=== PATIENT | male | born 1995 | race Caucasian/White ===

== ENCOUNTER 2020-04-11 17:24 | Emergency (ER) | payer SELFPAY ==
[2020-04-11 17:38] VITALS: BP 142/85
[2020-04-11] MEDS ORDERED: CLINDAMYCIN 600 MG/D5W RTU 600 MG/50 ML RTUPB IV ONE (19:34)
[2020-04-11] MEDS ORDERED: DIPH/PERTUSS(ACELL)/TETANUS VAC/PF 0.5 ML SYR (>=10YO) IM ONE (19:34)
[2020-04-11] MEDS ORDERED: RINGERS SOLUTION,LACTATED 1,000 ML IV ONE (19:37)
--- NOTE | 2020-04-11 19:37 | ER Document Report ---
ED Medical Screen (RME) - General Chief Complaint: Hand Pain Stated Complaint: POSSIBLE HAND INFECTION Time Seen by Provider: 04/11/20 19:27 Mode of Arrival: Ambulatory Information source: Patient Notes: HPI; 25-year-old male presents emergency room with possible abscess to his left arm that he noticed 2 days ago. He denies any trauma or injury. Also states that approximately 3 months ago he got stuck in his left middle finger with a needle while cleaning up a company truck. He states he all developed also developed a abscess on his left buttock today. Denies any previous history of abscesses. No fevers. No medication for symptoms. Unknown last tetanus shot. PE: Alert and oriented x3. Left thumb with erythema, swelling, tenderness to palpation. Tip of left middle finger poorly healing from a possible previous abscess. It is not warm or tender to palpation. With no active discharge or draining noted. Unable to do full assessment in triage. I have greeted and performed a rapid initial assessment of this patient. A comprehensive ED assessment and evaluation of the patient, analysis of test results and completion of the medical decision making process will be conducted by additional ED providers. I have specifically instructed the patient or family members with the patient to immediately return to any nursing staff should anything change in the patient's condition or with their chief complaint. TRAVEL OUTSIDE OF THE [place] IN LAST 30 DAYS: No Physical Exam - Vital signs Vitals: Temp Pulse Resp BP Pulse Ox 98.2 F 106 H 16 142/85 H 100 04/11/20 17:37 04/11/20 17:37 04/11/20 17:37 04/11/20 17:37 04/11/20 17:37 Course - Vital Signs Vital signs: Temp Pulse Resp BP Pulse Ox 98.2 F 106 H 16 142/85 H 100 04/11/20 17:37 04/11/20 17:37 04/11/20 17:37 04/11/20 17:37 04/11/20 17:37
[2020-04-11 20:12] LABS: ABSOLUTE BASOPHILS # (AUTO) 0.1 10^3/uL (0.0-0.2); ABSOLUTE EOSINOPHILS # (AUTO) 0.2 10^3/uL (0.0-0.6); ABSOLUTE LYMPHOCYTES (AUTO) 2.1 10^3/uL (0.5-4.7); ABSOLUTE MONOCYTES (AUTO) 0.8 10^3/uL (0.1-1.4); ABSOLUTE NEUT (AUTO) 11.7 10^3/uL (1.7-8.2); BASOPHILS % (AUTO) 0.5 % (0-2); EOSINOPHILS % (AUTO) 1.1 % (0-6); HEMATOCRIT 49.5 % (37.9-51.0); HEMOGLOBIN 16.8 g/dL (13.5-17.0); LYMPHOCYTES % (AUTO) 14.1 % (13-45); MEAN CORPUSCULAR HEMOGLOBIN 28.6 pg (27.0-33.4); MEAN CORPUSCULAR VOLUME 84 fl (80-97); MONOCYTES % (AUTO) 5.3 % (3-13); PLATELET COUNT 263 10^3/uL (150-450); RED BLOOD COUNT 5.89 10^6/uL (4.35-5.55); RED CELL DISTRIBUTION WIDTH 13.3 % (11.5-14.0); TOTAL CELLS COUNTED % (AUTO) 100 %; WHITE BLOOD COUNT 14.8 10^3/uL (4.0-10.5)
[2020-04-11 20:28] LABS: ALBUMIN 4.4 g/dL (3.5-5.0); ALKALINE PHOSPHATASE 131 U/L (38-126); ANION GAP 10 (5-19); ASPARTATE AMINO TRANSFERASE 21 U/L (17-59); BILIRUBIN,TOTAL 0.4 mg/dL (0.2-1.3); BLOOD UREA NITROGEN 8 mg/dL (7-20); CALCIUM 9.3 mg/dL (8.4-10.2); CARBON DIOXIDE 28 mmol/L (22-30); CHLORIDE 101 mmol/L (98-107); GLUCOSE 116 mg/dL (75-110); POTASSIUM 4.1 mmol/L (3.6-5.0); TOTAL PROTEIN 7.3 g/dL (6.3-8.2)
--- NOTE | 2020-04-11 20:28 | RADIOLOGY REPORT (SQ) ---
EXAM DESCRIPTION: XR HAND 3 OR MORE VIEWS COMPLETED DATE/TME: 04/11/2020 19:35 CLINICAL HISTORY: 25 years ,Male pain/swelling COMPARISON: None. TECHNIQUE: LEFT hand, Three view FINDINGS: There is been amputation of the tip of the third digit which involves both the terminal tuft and the soft tissues. No radiopaque foreign object noted. IMPRESSION: Amputation of the tip at the third digit involving the terminal tuft and soft tissues
== END 2020-04-11 22:20 | disposition left against medical advice (07) ==
LOC: ER 17:24
DX: L53.9 Erythematous condition, unspecified (principal); M79.89 Other specified soft tissue disorders; L02.31 Cutaneous abscess of buttock; M79.643 Pain in unspecified hand; Z53.20 Procedure and treatment not carried out because of patient's decision for unspecified reasons
CPT/HCPCS: 36415; 80053; 83605; 85025; 87040; 99281

== ENCOUNTER 2020-04-16 00:51 | Emergency (ER) | payer SELFPAY ==
[2020-04-16] MEDS ORDERED: VANCOMYCIN HCL INJ 1000 MG VIAL IV ONE (01:43)
[2020-04-16] MEDS ORDERED: CEFTRIAXONE 1 GM/D5W RTU 1 GM/50 ML RTUPB IV ONE (01:43)
--- NOTE | 2020-04-16 01:45 | ER Document Report ---
ED Medical Screen (RME) - General Chief Complaint: Skin Sore(s) Stated Complaint: OPEN SORES ON BUTTOCK, LEFT THUMB, MIDDLE FINGER Time Seen by Provider: 04/16/20 01:36 Notes: 25-year-old male with chief complaint of infection to the left thumb and middle fingers. He states he had a needle injury to the left middle finger, he is actually evaluated for this about a week ago briefly but left before being seen completely. He states over the past several days he has had significant swelling, pain, and discoloration to the left thumb, he tried to cut the edge of the thumb open himself over the past day and now he has pus draining out of the thumb pad. He denies fevers. Secondarily he also has a boil on his left buttock. He denies history of IV drug abuse or MRSA. He denies any known medical history. TRAVEL OUTSIDE OF THE [place] IN LAST 30 DAYS: No - Related Data Allergies/Adverse Reactions: No Known Allergies Allergy (Verified 04/16/20 01:36) Past Medical History - Social History Frequency of alcohol use: None Drug Abuse: Marijuana Physical Exam - Vital signs Vitals: Temp Pulse Resp BP Pulse Ox 98.1 F 119 H 20 158/83 H 99 04/16/20 00:59 04/16/20 00:59 04/16/20 00:59 04/16/20 00:59 04/16/20 00:59 - Extremities General upper extremity: Other - Erythema, ecchymosis, significant swelling and discoloration to the left thumb and slightly to the left middle finger. There is an open wound over the thumb pad with draining purulent material Course - Re-evaluation Re-evalutation: I have greeted and performed a rapid initial assessment of this patient. A comprehensive ED assessment and evaluation of the patient, analysis of test results and completion of the medical decision making process will be conducted by additional ED providers. - Vital Signs Vital signs: Temp Pulse Resp BP Pulse Ox 98.1 F 119 H 20 158/83 H 99 04/16/20 00:59 04/16/20 00:59 04/16/20 00:59 04/16/20 00:59 04/16/20 00:59
[2020-04-16 02:18] LABS: ABSOLUTE BASOPHILS # (AUTO) 0.1 10^3/uL (0.0-0.2); ABSOLUTE EOSINOPHILS # (AUTO) 0.3 10^3/uL (0.0-0.6); ABSOLUTE MONOCYTES (AUTO) 0.8 10^3/uL (0.1-1.4); ABSOLUTE NEUT (AUTO) 7.2 10^3/uL (1.7-8.2); BASOPHILS % (AUTO) 0.9 % (0-2); EOSINOPHILS % (AUTO) 2.2 % (0-6); HEMATOCRIT 47.2 % (37.9-51.0); HEMOGLOBIN 15.9 g/dL (13.5-17.0); LYMPHOCYTES % (AUTO) 26.2 % (13-45); MEAN CORPUSCULAR HEMOGLOBIN 28.3 pg (27.0-33.4); MEAN CORPUSCULAR HGB CONC 33.7 g/dL (32.0-36.0); MEAN CORPUSCULAR VOLUME 84 fl (80-97); MONOCYTES % (AUTO) 7.1 % (3-13); PLATELET COUNT 346 10^3/uL (150-450); RED BLOOD COUNT 5.62 10^6/uL (4.35-5.55); RED CELL DISTRIBUTION WIDTH 13.3 % (11.5-14.0); SEGMENTED NEUTROPHILS % (AUTO) 63.6 % (42-78); TOTAL CELLS COUNTED % (AUTO) 100 %; WHITE BLOOD COUNT 11.3 10^3/uL (4.0-10.5)
[2020-04-16] MEDS ORDERED: DIPH/PERTUSS(ACELL)/TETANUS VAC/PF 0.5 ML SYR (>=10YO) IM ONE (02:26)
--- NOTE | 2020-04-16 02:26 | ER Document Report ---
ED General - General Chief Complaint: Skin Sore(s) Stated Complaint: OPEN SORES ON BUTTOCK, LEFT THUMB, MIDDLE FINGER Time Seen by Provider: 04/16/20 01:36 TRAVEL OUTSIDE OF THE [place] IN LAST 30 DAYS: No - HPI Notes: Patient is a 25-year-old male who presents to the emergency department for evaluation of pain and swelling in his left thumb. He is a slightly difficult historian. He states the first he developed swelling in his left middle finger. He states that that improved, but now he is developed in his left thumb. It appears this is only been going on over the last several days. He states he cut it open earlier today because the swelling caused him significant pain. Now that he is "released the pressure" his pain is only 1 out of 5. He states he is unsure when his last tetanus shot was. He denies any fever chills. No nausea or vomiting. He is eating and drinking normally. He is right-hand dominant. On further questioning, the patient admits to using cocaine just prior to arriv al. - Related Data Allergies/Adverse Reactions: No Known Allergies Allergy (Verified 04/16/20 01:36) Home Medications: None Past Medical History - General Information source: Patient - Social History Smoking Status: Current Every Day Smoker Frequency of alcohol use: None Drug Abuse: Cocaine, Marijuana Family History: Reviewed & Not Pertinent Surgical Hx: Negative Review of Systems - Review of Systems Constitutional: No symptoms reported EENT: No symptoms reported Cardiovascular: No symptoms reported Respiratory: No symptoms reported Gastrointestinal: No symptoms reported Genitourinary: No symptoms reported Musculoskeletal: See HPI Skin: See HPI Neurological/Psychological: No symptoms reported Physical Exam - Vital signs Vitals: Temp Pulse Resp BP Pulse Ox 98.1 F 119 H 20 158/83 H 99 04/16/20 00:59 04/16/20 00:59 04/16/20 00:59 04/16/20 00:59 04/16/20 00:59 - Notes Notes: Is a 25-year-old gentleman who appears stated age, no acute distress. Head is normocephalic and atraumatic, pupils are equal and round, reactive to light. Oral mucosa is moist. Uvula is midline. Neck is supple without meningismus. Heart is tachycardic with normal S1, S2. Lungs are clear to auscultation bilaterally. Abdomen is soft, nontender, normoactive bowel sounds. Examination of the left upper extremity yields chronic appearing deformity to the distal phalanx of the middle finger, palmar aspect. The patient has a moderate amount of edema with open area on the palmar aspect of the left thumb, asymmetry secondary to the edema. There is erythema. There is a small amount of purulence draining from the open wound. Erythema tracks to the base of the thumb. I do not appreciate any lymphangitic streaking. Patient is awake and alert, cooperative with examiner. Course - Re-evaluation Re-evalutation: 04/16/20 02:29 Patient presents to the emergency department for evaluation. He was initially seen through triage. He had blood work and imaging is ordered. He had antibiotics including ceftriaxone and vancomycin ordered. The patient admits to regular cocaine use, this is likely the etiology of his tachycardia. Ordering full septic work-up. He is given IV fluids. He has not yet been on antibiotics. His tetanus is updated. Awaiting for blood work and imaging results to determine ultimate disposition. Patient is currently stable, we will continue to monitor. 04/16/20 03:22 Laboratory investigation revealed only very mild areas no significant left shift. He is tachycardic but I suspect this is secondary to the cocaine. Tetanus updated. He was given ceftriaxone and vancomycin here. He is given IV fluids. His lactic acid is normal. I do believe that this patient has a felon, and I do not see any significant signs of systemic infection. He has already cut into the area, and I do believe it would be more appropriately cared for by an orthopedic surgeon, particularly given the asymmetric deformity as well. I will send him home on antibiotics. The importance of close follow-up with orthopedist was stressed, and I explained to him that not following up could result in significantly worsened infection or loss of the finger. He voiced understanding. I also explained to him that he should abstain from use of cocaine and he voiced understanding as well. He will be referred on to follow- up with Dr. Ordonez, on-call orthopedic surgeon. He is to return to the emergency department with worsening or new concerning symptoms of any sort. - Vital Signs Vital signs: Temp Pulse Resp BP Pulse Ox 98.1 F 119 H 20 158/83 H 99 04/16/20 00:59 04/16/20 00:59 04/16/20 00:59 04/16/20 00:59 04/16/20 00:59 - Laboratory Result Diagrams: 04/16/20 02:00 04/16/20 02:00 Laboratory results interpreted by me: 04/16/20 04/16/20 02:00 02:00 WBC 11.3 H RBC 5.62 H Glucose 136 H - Diagnostic Test Radiology reviewed: Image reviewed, Reports reviewed Radiology results interpreted by me: 04/16/20 03:24 Finger X-Ray 04/16/20 01:42 IMPRESSION: No significant change compared to the prior exam. Amputation through the tip of the third distal phalanx. copyright 2010 [employer]- All Rights Reserved Discharge - Discharge Clinical Impression: Felon of finger of left hand, Cocaine abuse Condition: Stable Disposition: HOME, SELF-CARE Instructions: Felon (Fingertip Abscess) (OM), Cocaine Abuse (OM) Additional Instructions: Please keep thumb clean with soap and water. Take antibiotic as prescribed. It is very important that you follow-up with the orthopedic surgeon on-call for further treatment, including likely incision and drainage. If you develop fevers, vomiting, increased redness, or any other new or concerning symptoms, please return immediately to the emergency department for evaluation. Referrals: QUINTEN ORDONEZ MD [ACTIVE STAFF] - Follow up as needed
[2020-04-16 02:31] LABS: ALBUMIN 4.1 g/dL (3.5-5.0); ALKALINE PHOSPHATASE 100 U/L (38-126); ANION GAP 10 (5-19); ASPARTATE AMINO TRANSFERASE 29 U/L (17-59); BILIRUBIN,DIRECT 0.2 mg/dL (0.0-0.4); BILIRUBIN,TOTAL 0.4 mg/dL (0.2-1.3); BLOOD UREA NITROGEN 11 mg/dL (7-20); CALCIUM 9.2 mg/dL (8.4-10.2); CARBON DIOXIDE 28 mmol/L (22-30); CHLORIDE 101 mmol/L (98-107); GLUCOSE 136 mg/dL (75-110); POTASSIUM 4.2 mmol/L (3.6-5.0); TOTAL PROTEIN 6.8 g/dL (6.3-8.2)
[2020-04-16] MEDS: NORMAL SALINE 1000 ML 1,000 ML IV PRN ×2 (02:46→04:35)
--- NOTE | 2020-04-16 03:01 | RADIOLOGY REPORT (SQ) ---
EXAM DESCRIPTION: XR FINGERS COMPLETED DATE/TME: 04/16/2020 01:42 CLINICAL HISTORY: 25 years, Male, x-rays of middle and thumb; injury, infection COMPARISON: 04/11/2020 NUMBER OF VIEWS: Three TECHNIQUE: Three views of the left fingers. LIMITATIONS: None. FINDINGS: Again noted is a amputation through the tip of the third distal phalanx. There is no acute fracture, dislocation, erosion, or periosteal reaction. Joint spaces are preserved. No radiopaque foreign body. IMPRESSION: No significant change compared to the prior exam. Amputation through the tip of the third distal phalanx. copyright 2010 [employer] All Rights Reserved
[2020-04-16 05:35] VITALS: BP 137/83
== END 2020-04-16 05:37 | disposition home or self-care (01) ==
LOC: ER 00:51
DX: L03.012 Cellulitis of left finger (principal); F14.10 Cocaine abuse, uncomplicated; L98.9 Disorder of the skin and subcutaneous tissue, unspecified; M79.89 Other specified soft tissue disorders; M79.645 Pain in left finger(s); F12.10 Cannabis abuse, uncomplicated; F17.200 Nicotine dependence, unspecified, uncomplicated
CPT/HCPCS: 99284; 96361; 90471; 96365; 96368; 36415; 87040; 87070; 87205; 83605; 85025; 87077; 80053; 87186; 73140; 90715; J7030; J3370; J0696

== ENCOUNTER 2020-04-25 22:30 | Emergency (ER) | payer SELFPAY ==
--- NOTE | 2020-04-25 23:40 | ER Document Report ---
ED Medical Screen (RME) - General Chief Complaint: Psych Problem Stated Complaint: PSYCH/VISUAL/AUDITORY HALLUCINATIONS Time Seen by Provider: 04/25/20 23:32 Mode of Arrival: Ambulatory Information source: Patient, Relative - bROTHER Notes: Patient is a 25-year-old male presenting to the emergency department stating that he is seeing things and hearing voices. He states this started about 3 days ago, he denies any history of any mental health issues, has never had any mental health diagnoses and does not take any medications. He does report that he uses meth daily. He denies any suicidal or homicidal ideations. He is a poor historian. His brother is with him in triage, his brother reports he broke up with his girlfriend about a year ago and that has been bothering him over the last few days. I have greeted and performed a rapid initial assessment of this patient. A comprehensive ED assessment and evaluation of the patient, analysis of test results and completion of the medical decision making process will be conducted by additional ED providers. I have specifically instructed the patient or family members with the patient to immediately return to any nursing staff pilar uld anything change in the patient's condition or with their chief complaint. TRAVEL OUTSIDE OF THE [place] IN LAST 30 DAYS: No - Related Data Allergies/Adverse Reactions: No Known Allergies Allergy (Verified 04/16/20 01:36) Past Medical History - Social History Frequency of alcohol use: Occasional Drug Abuse: Methamphetamine Physical Exam - Vital signs Vitals: Temp Pulse Resp BP Pulse Ox 98 F 114 H 20 148/76 H 96 04/25/20 22:43 04/25/20 22:43 04/25/20 22:43 04/25/20 22:43 04/25/20 22:43 Course - Vital Signs Vital signs: Temp Pulse Resp BP Pulse Ox 98 F 114 H 20 148/76 H 96 04/25/20 23:26 04/25/20 22:43 04/25/20 22:43 04/25/20 22:43 04/25/20 22:43
[2020-04-26 00:07] LABS: ABSOLUTE BASOPHILS # (AUTO) 0.1 10^3/uL (0.0-0.2); ABSOLUTE EOSINOPHILS # (AUTO) 0.2 10^3/uL (0.0-0.6); ABSOLUTE MONOCYTES (AUTO) 0.7 10^3/uL (0.1-1.4); ABSOLUTE NEUT (AUTO) 6.2 10^3/uL (1.7-8.2); TOTAL CELLS COUNTED % (AUTO) 100 %
[2020-04-26 00:12] LABS: ALBUMIN 4.5 g/dL (3.5-5.0); ALKALINE PHOSPHATASE 91 U/L (38-126); ANION GAP 11 (5-19); ASPARTATE AMINO TRANSFERASE 36 U/L (17-59); BILIRUBIN,DIRECT 0.3 mg/dL (0.0-0.4); BILIRUBIN,TOTAL 0.5 mg/dL (0.2-1.3); BLOOD UREA NITROGEN 10 mg/dL (7-20); CALCIUM 9.3 mg/dL (8.4-10.2); CARBON DIOXIDE 27 mmol/L (22-30); CHLORIDE 104 mmol/L (98-107); GLUCOSE 128 mg/dL (75-110); POTASSIUM 4.2 mmol/L (3.6-5.0); TOTAL PROTEIN 7.5 g/dL (6.3-8.2)
[2020-04-26 00:13] LABS: ABSOLUTE LYMPHOCYTES (AUTO) 3.9 10^3/uL (0.5-4.7); BASOPHILS % (AUTO) 0.7 % (0-2); EOSINOPHILS % (AUTO) 1.6 % (0-6); HEMATOCRIT 48.5 % (37.9-51.0); HEMOGLOBIN 16.6 g/dL (13.5-17.0); LYMPHOCYTES % (AUTO) 35.2 % (13-45); MEAN CORPUSCULAR HEMOGLOBIN 28.2 pg (27.0-33.4); MEAN CORPUSCULAR HGB CONC 34.1 g/dL (32.0-36.0); MEAN CORPUSCULAR VOLUME 83 fl (80-97); MONOCYTES % (AUTO) 6.3 % (3-13); PLATELET COUNT 366 10^3/uL (150-450); RED BLOOD COUNT 5.86 10^6/uL (4.35-5.55); RED CELL DISTRIBUTION WIDTH 13.5 % (11.5-14.0); SEGMENTED NEUTROPHILS % (AUTO) 56.2 % (42-78); WHITE BLOOD COUNT 11.1 10^3/uL (4.0-10.5)
[2020-04-26 00:14] LABS: APPEARANCE,URINE SLIGHTLY-CLOUDY; BILIRUBIN,URINE NEGATIVE (NEGATIVE); COLOR,URINE AMBER; GLUCOSE, URINE NEGATIVE (NEGATIVE); KETONES,URINE TRACE mg/dL (NEGATIVE); LEUKOCYTE ESTERASE,URINE NEGATIVE (NEGATIVE); NITRITE,URINE NEGATIVE (NEGATIVE); PROTEIN,URINE 30 mg/dL (NEGATIVE); URINE SPECIFIC GRAVITY 1.036
[2020-04-26 00:15] LABS: ACETAMINOPHEN < 10 ug/mL (10-30); ALCOHOL < 10 mg/dL (NONE DETECTED); SALICYLATE < 1.0 mg/dL (2.0-20.0)
[2020-04-26 00:30] LABS: URINE BARBITURATES SCREEN NEGATIVE; URINE BENZODIAZEPINES SCREEN NEGATIVE; URINE COCAINE SCREEN NEGATIVE; URINE METHADONE SCREEN NEGATIVE; URINE PHENCYCLIDINE SCREEN NEGATIVE
--- NOTE | 2020-04-26 00:42 | ER Document Report ---
ED General - General Mode of Arrival: Ambulatory TRAVEL OUTSIDE OF THE [place] IN LAST 30 DAYS: No <CINDA OLIVEIRA IV - Last Filed: 04/26/20 05:43> <HUA BROTHERS - Last Filed: 04/26/20 11:08> <EMANUEL CARROLL eRji - Last Filed: 04/26/20 12:03> - General Chief Complaint: Psych Problem Stated Complaint: PSYCH/VISUAL/AUDITORY HALLUCINATIONS Time Seen by Provider: 04/25/20 23:32 Primary Care Provider: [facility] [Outside] - Follow up as needed [facility] [Outside] - Follow up as needed - HPI Notes: This is a 25-year-old male with a history of methamphetamine abuse that presents to the emergency department complaining of auditory and visual hallucinations. Patient states the symptoms started about 3 days ago. Patient states the symptoms started about the same time he was put on clindamycin for cellulitis. Patient denies prior mental health problems. Patient denies history of auditory or visual hallucinations in the past. Patient is unable to describe exactly what he is seen visually other than describing it as movement "out of the corner "of his eye. Patient states he is hearing nonspecific sounds. Patient states the symptoms coincided with starting clindamycin and decreasing use of met hamphetamine as much as he has been in the past. Patient denies suicidal ideation or homicidal ideation. Patient states he stopped taking clindamycin for his finger when he started having hallucinations. Patient states that he feels like the cellulitis in his thumb and middle finger is improving since he use the clindamycin but is afraid to continue using it because of the hallucinations he is having. Patient denies fever, chills, cough, shortness of breath, chest pain, nausea or vomiting. Patient denies loss of taste, loss of sense of smell. Patient states nothing seems to exacerbate the hallucinations other than the clindamycin and he has minimal relief of hallucinations when not using the clindamycin. Patient states he is still using meth. Patient denies suicidal ideation, homicidal ideation. (CINDA OLIVEIRA IV) - Related Data Allergies/Adverse Reactions: No Known Allergies Allergy (Verified 04/16/20 01:36) Past Medical History - General Information source: Patient, Relative - bROTHER - Social History Smoking Status: Current Every Day Smoker Frequency of alcohol use: Occasional Drug Abuse: Methamphetamine Family History: Reviewed & Not Pertinent Patient has homicidal ideation: No <CINDA OLIVEIRA IV - Last Filed: 04/26/20 05:43> Review of Systems - Review of Systems Constitutional: No symptoms reported EENT: No symptoms reported Cardiovascular: No symptoms reported Respiratory: No symptoms reported Gastrointestinal: No symptoms reported Genitourinary: No symptoms reported Male Genitourinary: No symptoms reported Musculoskeletal: No symptoms reported Skin: See HPI Hematologic/Lymphatic: No symptoms reported Neurological/Psychological: See HPI -: Yes All other systems reviewed and negative <CINDA OLIVEIRA IV - Last Filed: 04/26/20 05:43> Physical Exam <CINDA OLIVIERA IV - Last Filed: 04/26/20 05:43> - Vital signs Vitals: Temp Pulse Resp BP Pulse Ox 98 F 114 H 20 148/76 H 96 04/25/20 22:43 04/25/20 22:43 04/25/20 22:43 04/25/20 22:43 04/25/20 22:43 - Notes Notes: CONSTITUTIONAL [Vital signs reviewed, Patient appears comfortable, Alert and oriented X 3, Normal stature.] HEAD [Atraumatic, Normocephalic.] EYES [Eyes are normal to inspection, No discharge from eyes, Extraocular muscles intact, Sclera are normal, Conjunctiva are normal.] ENT [Ears normal to inspection, Nose examination normal, Posterior pharynx normal, Mouth normal to inspection.] NECK [Normal ROM, No jugular venous distention, No meningeal signs, no carotid bru it.] RESPIRATORY CHEST [Chest is nontender, Breath sounds normal, No respiratory distress.] CARDIOVASCULAR [RRR, No murmurs, Normal S1 S2, No rub, No gallop.] ABDOMEN [Abdomen is nontender, No pulsatile masses, No other masses, Bowel sounds normal, No distension, No peritoneal signs, No hernias.] BACK [There is no CVA Tenderness, There is no tenderness to palpation, Normal inspection.] UPPER EXTREMITY [Inspection normal, No cyanosis, No clubbing, No edema, 2+ radial pulses.] LOWER EXTREMITY [Inspection normal, No cyanosis, No clubbing, No edema, No calf tenderness, 2+ femoral pulses.] NEURO [No focal motor deficits, No focal sensory deficits, Speech normal.] SKIN [Patient's left thumb is significant for some erythema and excoriation and some subacute deformity of the pad that has been present since he cut into his thumb with a knife to release the pressure of the infection in his thumb prior to his last visit. There is no obvious area of pointing or fluctuance. Area is minima lly tender and patient is able to flex and extend his thumb without apparent difficulty. The skin at the tip of his left third finger appears to be healing well and does not appear erythematous, edematous or otherwise shows signs of infection] LYMPHATIC [No adenopathy in neck.] PSYCHIATRIC [Patient has a flat affect. Eye contact is poor times. Speech is occasionally tangential and patient admits that he does have some "crazy thoughts"] (CINDA OLIVEIRA IV) Course - Laboratory Result Diagrams: 04/25/20 23:45 04/25/20 23:45 <CINDA OLIVEIRA IV - Last Filed: 04/26/20 05:43> - Laboratory Result Diagrams: 04/25/20 23:45 04/25/20 23:45 <HUA BROTHERS - Last Filed: 04/26/20 11:08> - Laboratory Result Diagrams: 04/25/20 23:45 04/25/20 23:45 <EMANUEL CARROLL - Last Filed: 04/26/20 12:03> - Re-evaluation Re-evalutation: 04/26/20 11:55 1000- Patient's vital signs and previous labs, diagnostic images reviewed. Reviewed mental health notes, nurse's notes and previous providers notes. VSS. Pt is in no distress at this time. Denies any SI or HI. General: A&Ox3. Answers questions appropriately. Heart: RRR Lungs: CTAB Psych: Flat affect A/P: Continue monitoring and rec's per MH. Normal diet consider discharge 04/26/20 12:02 (EMANUEL CARROLL) - Vital Signs Vital signs: Temp Pulse Resp BP Pulse Ox 97.6 F 64 12 118/75 100 04/26/20 08:59 04/26/20 08:59 04/26/20 08:59 04/26/20 08:59 04/26/20 08:59 - Laboratory Laboratory results interpreted by me: 04/25/20 04/25/20 04/25/20 23:45 23:45 23:56 WBC 11.1 H RBC 5.86 H Glucose 128 H Urine Protein 30 H Urine Ketones TRACE H Urine Urobilinogen 2.0 H Salicylates < 1.0 L Acetaminophen < 10 L - EKG Interpretation by Me Additional EKG results interpreted by me: 04/26/20 00:51 EKG obtained on 04/25/2020 at 2352 hrs. was interpreted by this MD. Findings: Sinus tachycardia, rate 108, normal axis, P waves proceed QRS intervals, QRS intervals appear narrow, there are no obvious patterns of ST segment elevation or depression present to suggest acute myocardial ischemia or infarction. There is no other EKG immediately available to compare with patient's EKG on this visit. Impression: Sinus tachycardia with nonspecific ST segments (CINDA OLIVEIRA IV) Discharge <CINDA OLIVEIRA IV - Last Filed: 04/26/20 05:43> <HUA BROTHERS - Last Filed: 04/26/20 11:08> <EMANUEL CARROLL - Last Filed: 04/26/20 12:03> - Discharge Clinical Impression: Methamphetamine abuse, Marijuana abuse, Hallucinations, unspecified Cellulitis Qualifiers: Site of cellulitis: unspecified site Qualified Code(s): L03.90 - Cellulitis, unspecified Condition: Stable Disposition: HOME, SELF-CARE Additional Instructions: You have been evaluated both medical and behavioral health teams for substance induced psychosis. You are highly encouraged to abstain from using methamph etamines. Large amounts of meth are associated with an increased chance of experiencing paranoid psychosis, but meth psychosis can occur even the first time someone tries this drug. Meth causes the brain to release dopamine, a feel-good chemical that is usually released in smaller, more controlled amounts. This rhoades of dopamine causes a hormonal imbalance in the brain, and can result in aggression, emotional outbursts, and psychosis. Meth also affects the amygdala, a part of the brain that is tied to instincts like fight or flight. Overstimulating this area can result in an impulsive judgment and extreme paranoia. Some people may feel these effects short-term, where others suffer from long-term meth psychosis. AT ANY TIME, IF YOUR SYMPTOMS CHANGE SIGNIFICANTLY OR WORSEN OR YOU DEVELOP NEW SYMPTOMS, RETURN TO THE EMERGENCY DEPARTMENT IMMEDIATELY FOR RE-EVALUATION. Prescriptions: Haloperidol [Haldol 5 mg Tablet] 5 mg PO BIDP PRN #2 tablet PRN Reason: Referrals: [facility] [Outside] - Follow up as needed [facility] [Outside] - Follow up as needed SARAH QUINTANILLA MD [COMMUNITY BASED STAFF] - Follow up as needed
[2020-04-26 00:43] LABS: URINE MARIJUANA (THC) SCREEN UNCONFIRMED POSITIVE
[2020-04-26] MEDS ORDERED: SULFAMETHOXAZOLE/TRIMETHOPRIM 800-160 MG TABLET PO ONE (00:56)
--- NOTE | 2020-04-26 11:08 | PSYCHOLOGICAL NOTE ---
Psych Note - Psych Note Date seen by psych provider: 04/26/20 Time seen by psych provider: 10:00 Psych Note: Reason for Consult:Psychosis Patient arrived to [facility] ED via POV stating that he is seeing things and hearing voices. He states this started about 3 days ago, he denies any history of any mental health issues, has never had any mental health diagnoses and does not take any medications. Patient confirms he has been using methamphetamines and had not slept in 3 days; "I was seeing crazy, off the wall stuff." He reports since arriving to [facility] ED and getting sleep he has not experienced any further events. He discloses he is from [facility] and is here visiting family. He states he has gone through the process of detox and sobriety previously and states he knows what to do. patient is alert and orientated to person, place time and circumstance. Mood is euthymic with congruent affect. Patient denies suicidal and homicidal ideation. Delusions are absent and behaviour is congruent with an intact reality based presentation ie organized and linear thought processes. Eye contact was well maintained. Conversational speech is within normal rate, tone and prosody. Intellectual abilities appear to be within the average range. Attention and concentration are good. Insight, judgment, impulse control is fair. 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 Patient presented with substance induced psychosis in addition to not sleeping for 3 days. Patient reports now that he has received sleepy he is not experienced any events since his arrival to [facility] ED. Clinician provided psychoeducation on substance abuse and substance induced psychosis. Patient engaged appropriately with discussion on detox and sobriety. Patient was provided local resource list of area providers including detox facilities. Dr. Soto was consulted in the care management of this patient; tending physicians in agreement with recommendations and disposition.
[2020-04-26 12:11] VITALS: BP 120/76
--- NOTE | 2020-04-26 13:23 | EKG REPORT ---
SEVERITY:- BORDERLINE ECG - SINUS TACHYCARDIA INFERIOR Q WAVES, PROBABLY NORMAL VARIATION NONSPECIFIC INTRAVENTRICULAR CONDUCTION DELAY : Confirmed by: Clifford Armendariz MD 26-Apr-2020 13:22:29
== END 2020-04-26 12:19 | disposition home or self-care (01) ==
LOC: ER 22:30
DX: F15.151 Other stimulant abuse with stimulant-induced psychotic disorder with hallucinations (principal); F12.10 Cannabis abuse, uncomplicated; L03.012 Cellulitis of left finger; R00.0 Tachycardia, unspecified
CPT/HCPCS: 36415; 80053; 80307; 81001; 85025; 93005; 93010; 99284